=== PATIENT | male | born 1945 | race Caucasian/White ===

== ENCOUNTER 2018-10-27 11:06 | Emergency (ER) | payer MEDICARE ==
[2018-10-27 11:34] VITALS: BP 155/88
--- NOTE | 2018-10-27 13:15 | UC ---
Skin Complaint HPI - HPI Summary HPI Summary: 73 yo male presents with tick bite to the back of his right knee. He first noticed it this morning and thinks it has been attached 2-3 days as thats when he was outside doing a lot of yard work. His tried to remove it earlier today, but is unsure if she got the whole tick out. Denies any symptoms at this time. No pain. - History of Current Complaint Chief Complaint: UCSkin Time Seen by Provider: 10/27/18 13:15 Stated Complaint: TICK BITE Hx Obtained From: Patient Onset/Duration: Sudden Onset Current Severity: None Pain Intensity: 0 - Allergy/Home Medications Allergies/Adverse Reactions: Allergies Allergy/AdvReac Type Severity Reaction Status Date / Time acetaminophen [From Tylenol] Allergy Rash Verified 10/27/18 11:35 amoxicillin Allergy Unknown Verified 10/27/18 13:30 Reaction Details Home Medications: Home Medications Finasteride TAB* [Proscar TAB*] 1 tab PO DAILY 10/27/18 [History Confirmed 10/27] Lisinopril/HCTZ 20/12.5(NF) [Zestoretic 20/12.5(NF)] 1 tab PO DAILY 10/27/18 [ History Confirmed 10/27/18] PMH/Surg Hx/FS Hx/Imm Hx - Additional Past Medical History Additional PMH: BPH Cardiovascular History: Hypertension - Surgical History Surgical History: None - Family History Known Family History: Positive: Hypertension - Social History Occupation: Retired Lives: With Family Alcohol Use: Occasionally Substance Use Type: None Smoking Status (MU): Never Smoked Tobacco Review of Systems All Other Systems Reviewed And Are Negative: Yes Constitutional: Positive: Negative Skin: Positive: Other - Tick bite right knee Respiratory: Positive: Negative Cardiovascular: Positive: Negative Neurovascular: Positive: Negative Neurological: Positive: Negative Psychological: Positive: Negative Physical Exam - Summary Physical Exam Summary: GENERAL: NAD. WDWN. No pain distress. SKIN: RIGHT posterolateral knee there is a 7mm diameter of mild erythema and edema with central 1mm area of superficial skin loss. No streaking, bleeding, or drainage. CHEST: No accessory muscle use. Breathing comfortably and in no distress. CV: Pulses intact. Cap refill <2seconds NEURO: Alert. PSYCH: Age appropriate behavior. Triage Information Reviewed: Yes Vital Signs: Initial Vital Signs Temp 98.2 F 10/27/18 11:32 Pulse 86 10/27/18 11:32 Resp 18 10/27/18 11:32 BP 155/88 10/27/18 11:32 Pulse Ox 98 10/27/18 11:32 Vital Signs Reviewed: Yes Course/Dx - Course Course Of Treatment: Given that pt believes the tick was attached for 2-3 days - will treat with prophylactic doxy 200mg today. He was given this in the clinic. Advised to apply a band-aid to the area until well healed. - Diagnoses Provider Diagnosis: Tick bite Discharge - Sign-Out/Discharge Documenting (check all that apply): Patient Departure All imaging exams completed and their final reports reviewed: No Studies - Discharge Plan Condition: Stable Disposition: HOME Patient Education Materials: Lyme Disease (ED), Tick Bite (ED) Referrals: Giovanna Thompson MD [Primary Care Provider] - Additional Instructions: If you develop a fever, shortness of breath, chest pain, new or worsening symptoms - please call your PCP or go to the ED. Your blood pressure was high at todays visit. Please see your primary provider within 4 weeks for recheck and re-evaluation. TICK BITE: You have been bitten by a tick. Once the tick is removed, these "bites" usually cause no problems. Tick fever, tick paralysis, [place] Spotted fever, and Lyme disease are uncommon -- but you should mention this tick bite to your doctor if you develop unusual symptoms in the next several weeks. If you develop any of the following, please see your physician promptly: (1) Fever, chills, or generalized malaise associated with a headache. (2) A red round area at the site of the bite (or elsewhere) (3) Joint pain, joint swelling or generalized weakness. (4) Redness, swelling, or drainage at the site of the bite. - Billing Disposition and Condition Condition: STABLE Disposition: Home
[2018-10-27] MEDS ORDERED: DOXYcycline CAP(*) 100 MG PO ONE (13:21)
== END 2018-10-27 13:30 | disposition home or self-care (01) ==
LOC: UCEAST 11:06
DX: S80.261A Insect bite (nonvenomous), right knee, initial encounter (principal); W57.XXXA Bitten or stung by nonvenomous insect and other nonvenomous arthropods, initial encounter; Y93.H9 Activity, other involving exterior property and land maintenance, building and construction; Y92.096 Garden or yard of other non-institutional residence as the place of occurrence of the external cause; N40.0 Benign prostatic hyperplasia without lower urinary tract symptoms; I10 Essential (primary) hypertension; Z88.6 Allergy status to analgesic agent; Z88.0 Allergy status to penicillin
CPT/HCPCS: 99212; A9270-GY; G0463